=== PATIENT | male | born 1940 | race Caucasian/White ===

== ENCOUNTER 2021-09-16 19:34 | Emergency (ER) | payer OTHER ==
[~2021-09-16] VITALS: Ht 162.6 cm; Wt 81.2 kg
[2021-09-16 19:43] VITALS: BP 124/60
[2021-09-16 20:43] VITALS: BP 123/55
== END 2021-09-16 20:47 | disposition home or self-care (01) ==
LOC: MED 19:34
DX: S41.112A Laceration without foreign body of left upper arm, initial encounter (principal); E11.9 Type 2 diabetes mellitus without complications; I10 Essential (primary) hypertension; Z98.890 Other specified postprocedural states; W18.09XA Striking against other object with subsequent fall, initial encounter; Y93.89 Activity, other specified; Y92.89 Other specified places as the place of occurrence of the external cause; Y99.8 Other external cause status
CPT/HCPCS: 99281

== ENCOUNTER 2022-05-12 13:15 | Inpatient (IN) | payer OTHER ==
[~2022-05-12] VITALS: Ht 177.8 cm; Wt 84.1 kg
--- NOTE | 2022-05-12 | NUR ---
2034 RECEIVED PT FROM ED ON A GURNEY ACCOMPANIED BY AN RN AND 3 RT'S PT IS BEING BAGGED H ENTERS ICU . HE'S TRANSFERRED TO AN ICU BED USING A SLIDER BOARD AND IMMEDIATELY CONNECTED TO THE VENTILATOR VIA ETT. WITH SETTINGS OF AC RATE 18TV 450 FIO2 35%
--- NOTE | 2022-05-12 | NUR ---
PT BP DROPPED TO 59./20 LEVOPHEDINCREASED TO 8MCG/MIN AND LATER DROPPED BACK TO 5MCG
[2022-05-12] MEDS ORDERED: ACETAMINOPHEN 650 MG SUPP RC ONE ×2 (13:50)
--- NOTE | 2022-05-12 14:09 | NUR ---
81 Y/O MALE MAUREEN FROM [facility] SN[facility], C/O ALOC, PER EMS PT IS NORMALLY GCS 15, A/OX4 VERBALLY RESPONSIVE, PT PRESENTS TO ED ALERT TO PAIN ONLY, GCS 5, PERRL NOTED, LEFT DIALYSIS SHUNT THRILLS NOTED, GEN EDEMA NOTED, SATTING AT 98% ON NRB, 88% RA. NOTED CRACKLES AND DIMINISHED BREATH SOUNDS THROUGHOUT. NKA PMH: DM, HTN, ESRD DIALYSIS MWF LEFT FOREARM SHUNT, HDL, HYPOTHYROID Addendum: 05/12/22 at 1901 by MNURBMD SPOKE TO LIN OF FACILITY STATED THAT PT IS NORMALLY GCS14 WITH CONFUSIONS, HOWEVER HE IS NORMALLY VERBALLY RESPONSIVE
--- NOTE | 2022-05-12 14:13 | NUR ---
X-Ray at bedside.
--- NOTE | 2022-05-12 14:23 | NUR ---
PT TAKEN TO CT VIA TRAVEL OT AND PRIMARY RN
[2022-05-12] MEDS ORDERED: INTUBATION KIT MC ONE (14:31)
[2022-05-12] MEDS ORDERED: ROCURONIUM 50 MG/5 ML VIAL IV ONE ×2 (14:35→15:00)
[2022-05-12] MEDS ORDERED: ETOMIDATE 20 MG/10 ML VIAL IVP ONE (14:35)
--- NOTE | 2022-05-12 14:36 | NUR ---
Patient Addendum: 05/12/22 at 1436 by RITCHIE Patient back from CT scan to bed 10
[2022-05-12] MEDS ORDERED: PROPOFOL 1000 MG/100 ML PREMIX 100 ML IV ONE ×3 (14:42→21:08)
[2022-05-12 14:50] VITALS: BP 151/59
[2022-05-12] MEDS ORDERED: SUCCINYLCHOLINE CHLORIDE 200 MG/10 ML VIAL IVP ONE (15:00)
--- NOTE | 2022-05-12 15:06 | NUR ---
INTUBATION 1448-DR ROTHMAN, RT AND PRIMARY RN AT BEDSIDE 1449-20MG ETOMIDATE GIVEN 1449- 100MG ROCURONIUM GIVEN 1450-INTUBATED, 7.5 ETT, 24' AT THE LIP. +COLOR CHANGE +BILATERAL BREATH SOUNDS 1452- OG TUBE INSERTED BY DR ROTHMAN +AUSCULATED.
[2022-05-12] MEDS ORDERED: cefTRIAXone 1,000 MG VIAL ONE (15:13)
--- NOTE | 2022-05-12 15:15 | NUR ---
DR ROTHMAN AT BEDSIDE FOR CENTRAL LINE PLACEMENT, INSERTED TO R IJ AT 1515. PERFORMED USING STERILE TECHNIQUE.
[2022-05-12 15:20] LABS: ALBUMIN 2.7 g/dL (3.4-5.0); ASPARTATE AMINOTRANSFERASE 25 U/L (15-37); CARBON DIOXIDE 29.6 mmol/L (21-32); CHLORIDE 95 mmol/L (98-107); GLUCOSE 158 mg/dL (74-106); POTASSIUM 5.6 mmol/L (3.5-5.1); SODIUM SERUM 133 mmol/L (136-145); TOTAL BILIRUBIN 0.3 mg/dL (0.0-1.0); UREA NITROGEN, BLOOD 36 mg/dL (7-18)
[2022-05-12] MEDS ORDERED: NOREPINEPHRINE 4 MG/4 ML VIAL IV ONE (15:20)
[2022-05-12 15:25] LABS: CREATININE 5.7 mg/dL (0.6-1.3)
[2022-05-12 15:34] LABS: BASOPHILS # (AUTO) 0.1 K/uL (0.00-0.22); BASOPHILS % (AUTO) 1.1 % (0.0-2.0); EOSINOPHILS # (AUTO) 0.1 K/uL (0-0.4); EOSINOPHILS % (AUTO) 0.8 % (0.0-4.0); HEMATOCRIT 32.7 % (36-52); HEMOGLOBIN 10.4 g/dL (12.0-18.0); LYMPHOCYTES # (AUTO) 1.8 K/uL (2.0-11.5); LYMPHOCYTES % (AUTO) 14.3 % (20.5-51.1); MEAN CORPUSCULAR HEMOGLOBIN 28 pg (27-31); MEAN CORPUSCULAR HGB CONC 32 g/dL (33-37); MEAN CORPUSCULAR VOLUME 86.7 fL (80-94); MONOCYTES # (AUTO) 0.9 K/uL (0.8-1.0); MONOCYTES % (AUTO) 7.6 % (1.7-9.3); NEUTROPHILS # (AUTO) 9.3 K/uL (1.8-7.7); NEUTROPHILS % (AUTO) 76.2 % (42.2-75.2); PLATELET COUNT (AUTO) 211 K/uL (140-450); RED BLOOD CELL COUNT(AUTO) 3.77 MIL/uL (4.20-6.10); RED CELL DISTRIBUTION WIDTH 18.8 % (11.6-13.7); WHITE BLOOD COUNT (AUTO) 12.2 K/uL (4.8-10.8)
[2022-05-12] MEDS ORDERED: NOREPINEPHRINE 4 MG in DEXTROSE 5% 250 ML IV ONE (15:35)
[2022-05-12] MEDS ORDERED: CALCIUM CHLORIDE 10% 100 MG/ML SYR IVP ONE (15:40)
[2022-05-12] MEDS ORDERED: SODIUM POLYSTYRENE 15 GM/60 ML UDBTL PR ONE (15:40)
--- NOTE | 2022-05-12 15:48 | NUR ---
@1540 PT VENT ALARMED "PT DISCONECTED". RT TROUBLE SHOOTED WHILE XRAY BAGGED PT WITH AMBU BAG.PT IS STABLE WHILE VENT WAS CHANGED OUT. PT IS CURRENTLY STABLE AND IS ON NEW VENT ID [id number] AND IS WORKING ACCURATELY. PT IS STABLE WITH VITAL SIGNS HR 101 SPO2 98%.
--- NOTE | 2022-05-12 16:00 | NUR ---
NOTED INCREASED GREEN GASTRIC CONTENTS IN OGT, DR ROTHMAN MADE AWARE, STATED OK TO SUCTION OGT, NOTED 300CC OF GREEN COLORED CONTENTS
[2022-05-12] MEDS ORDERED: ONDANSETRON 4 MG/2 ML VIAL IVP PRN (16:10)
[2022-05-12] MEDS ORDERED: MORPHINE SULFATE 4 MG/ML SYR IVP PRN (16:10)
[2022-05-12] MEDS ORDERED: VANCOMYCIN PER PHARMACY MC PRN (16:10)
--- NOTE | 2022-05-12 17:00 | NUR ---
Sally sutton in [facility] - 05/12/22 at [address] MURILLO AT BEDSIDE
--- NOTE | 2022-05-12 17:00 | NUR ---
DR PARTIDA AT BEDSIDE
[2022-05-12 17:13] LABS: APPEARANCE,URINE CLEAR (CLEAR); BILIRUBIN,URINE NEGATIVE (NEGATIVE); BLOOD, URINE NEGATIVE (NEGATIVE); COLOR,URINE YELLOW (YELLOW); LEUKOCYTE ESTERASE ,URINE NEGATIVE (NEGATIVE); NITRITE, URINE NEGATIVE (NEGATIVE); UGLUCOSE 1+ (NEGATIVE)
--- NOTE | 2022-05-12 17:23 | NUR ---
SPOKE TO [facility] AFTER HOURS PHARMACIST REGARDING DR MURILLO ORDER FOR ZOSYN 3.75G Q8, PHARMACIST PT DIALYSIS SHOULD DO A SMALLER DOSE OF 2.25NG Q8.
--- NOTE | 2022-05-12 17:30 | NUR ---
CALLED DR PARTIDA REGARDING DR MURILLO ORDER OF ZOSYN AND PHARMACIST RECOMMENDATION, DR PARTIDA STATED TO CHANGE ORDER TO ZOSYN 2.25G Q8
[2022-05-12 17:34] LABS: RBC,URINE 0-5 /HPF (0-5); WBC,URINE 0-5 /HPF (0-5)
[2022-05-12 17:35] LABS: FINE GRANULAR CASTS,URINE 0-10 /LPF (None Seen); TRICHOMONAS,URINE None Seen /HPF (None Seen); YEAST,URINE None Seen /HPF (None Seen)
[2022-05-12] MEDS ORDERED: PIPERACILLIN/TAZOBACTAM 3.375 GM in DEXTROSE 5% 50 ML IV SCH (18:00)
[2022-05-12] MEDS ORDERED: ATOR20TA40 PO (18:17)
[2022-05-12] MEDS ORDERED: FOLI1TAB90 PO (18:17)
[2022-05-12] MEDS ORDERED: AMLO10TA88 PO (18:17)
[2022-05-12] MEDS ORDERED: GLIM2TAB PO (18:17)
[2022-05-12] MEDS ORDERED: GABA300C1 (18:17)
[2022-05-12] MEDS ORDERED: MONT10TA35 (18:17)
[2022-05-12] MEDS ORDERED: LOSA50TA57 PO (18:17)
[2022-05-12] MEDS ORDERED: REN800 (18:17)
[2022-05-12] MEDS ORDERED: ASPI-1794 PO (18:17)
[2022-05-12] MEDS ORDERED: ISOS30TE68 PO (18:17)
[2022-05-12] MEDS ORDERED: AMIT25TA29 PO (18:17)
[2022-05-12] MEDS ORDERED: HYDR-4420 PO (18:17)
[2022-05-12] MEDS ORDERED: SEVE800T25 PO (18:17)
[2022-05-12] MEDS ORDERED: BACL10TA4 PO (18:17)
[2022-05-12] MEDS ORDERED: LEVO0.179 PO (18:17)
[2022-05-12] MEDS ORDERED: FERR-149 PO (18:17)
[2022-05-12] MEDS ORDERED: ACET-9526 PO (18:17)
[2022-05-12] MEDS ORDERED: INSU100I21 SUBQ (18:17)
[2022-05-12] MEDS ORDERED: ACET-10509 PO (18:19)
[2022-05-12] MEDS ORDERED: MULT-1469 PO (18:19)
[2022-05-12] MEDS ORDERED: TERA5CAP8 PO (18:19)
[2022-05-12] MEDS ORDERED: VANCOMYCIN 1,000 MG VIAL ONE (18:27)
[2022-05-12] MEDS ORDERED: VANCOMYCIN 1,000 MG in DEXTROSE 5% 250 ML IV ONE (18:30)
--- NOTE | 2022-05-12 19:20 | NUR ---
Pt report given to rosales ann. Transfer of care at this time.
--- NOTE | 2022-05-12 19:27 | NUR ---
RECEIVED PT IN BED 10, ATTACHED TO VENT ON A/C, BUR 18, VT 450 CC, FiO2 AT 45%. PROPIFOL, AND LEVOPHED INFUSING WELL. PT IS UNRESPONSIVE AT THIS TIME.
[2022-05-12 20:00] VITALS: BP 120/57
--- NOTE | 2022-05-12 20:05 | NUR ---
REPORT CALLED TO JENNIFER ROBLES
--- NOTE | 2022-05-12 20:25 | NUR ---
TO ICU 7 VIA GURNEY, ATTACHED TO CM, RT AT BEDSIDE. RN AND CALCULUS TEACHER ACCOMPANYING WITH RT
--- NOTE | 2022-05-12 20:35 | NUR ---
CONTINUING. AND PEEP 5. PT HAS VERY SHALLOW BREATHING; THE CHEST WALL BARELY MOVES. HE'S CONNECTED TO THE BEDSIDE WINDER TENDER SHOWING SINUS RHYTHM, BP/120/69 ON 3MCG LEVOPHED.PT IS LSO ON PROPOFOL AND IS AT A RASS-3. HIS GIVEN A SPONGE BATH AND HE HAS A HEALING WOUND ON HIS COCCYX BONE ANEW DRSG APPLIED HE HAS WENDY HEEL WOUNDS . THE DRSG WERE REMOVED AND NEW DRSG APPLIED. PT HAS A RIGHT INTERNAL JUGULAR CENTRAL LINE, HE ALSO HAS A 18 G ANGIOCATH IN THE RFA. ORAL CARE GIVEN PT HE HAS CLEAR SECRETION IN THE MOUTH. PT XRAY SHOWS LOWER LOBE INFILTRATE WHICH RESULTS ASPIRATION PNEUMONIA PER THE SUPERVISOR TREE TRIMMING NOTES. PT HAS FUNGUS ON HIS FEET BILATERALLY.
[2022-05-12 21:00] VITALS: BP 167/52
[2022-05-12] MEDS: PIPERACILLIN/TAZOBACTAM 2.25 GM in DEXTROSE 5% 50 ML IV SCH (21:00)
[2022-05-12] MEDS ORDERED: PIPERACILLIN/TAZOBACTAM 2.25 GM VIAL IV ONE (21:39)
[2022-05-12 22:00] VITALS: BP 112/38
[2022-05-12] MEDS ORDERED: NOREPINEPHRINE 8 MG in DEXTROSE 5% 250 ML IV PRN (22:00)
[2022-05-12 23:00] VITALS: BP 113/42
[2022-05-13] VITALS (19 sets, daily range): BP systolic 88–169; BP diastolic 37–70
[2022-05-13] MEDS: PROPOFOL 1000 MG/100 ML PREMIX 100 ML IV PRN ×4 (02:01→22:39)
--- NOTE | 2022-05-13 03:56 | NUR ---
PT BLOOD PRESSURE IS STABLIZING ON THE 5MCG; WILL TITRATE BACK TO 3 TO SEE HOW HE DOES. THE 35MCG OF PROPOFOL HAS PROVED SUFFICIENT TO KEEP THE PT AT A RASS 3
[2022-05-13] MEDS ORDERED: NOREPINEPHRINE 4 MG/4 ML VIAL IV ONE (04:19)
[2022-05-13] MEDS ORDERED: PIPERACILLIN/TAZOBACTAM 2.25 GM VIAL IV ONE (05:30)
[2022-05-13] MEDS: PIPERACILLIN/TAZOBACTAM 2.25 GM in DEXTROSE 5% 50 ML IV SCH ×3 (05:45→20:32)
[2022-05-13 05:48] LABS: BASOPHILS # (AUTO) 0.2 K/uL (0.00-0.22); BASOPHILS % (AUTO) 1.2 % (0.0-2.0); EOSINOPHILS # (AUTO) 0.1 K/uL (0-0.4); EOSINOPHILS % (AUTO) 0.6 % (0.0-4.0); HEMATOCRIT 30.9 % (36-52); HEMOGLOBIN 9.8 g/dL (12.0-18.0); LYMPHOCYTES # (AUTO) 1.7 K/uL (2.0-11.5); LYMPHOCYTES % (AUTO) 11.9 % (20.5-51.1); MEAN CORPUSCULAR HEMOGLOBIN 28 pg (27-31); MEAN CORPUSCULAR HGB CONC 32 g/dL (33-37); MEAN CORPUSCULAR VOLUME 87.1 fL (80-94); MONOCYTES # (AUTO) 1.1 K/uL (0.8-1.0); MONOCYTES % (AUTO) 7.8 % (1.7-9.3); NEUTROPHILS # (AUTO) 11.3 K/uL (1.8-7.7); NEUTROPHILS % (AUTO) 78.5 % (42.2-75.2); PLATELET COUNT (AUTO) 184 K/uL (140-450); RED BLOOD CELL COUNT(AUTO) 3.54 MIL/uL (4.20-6.10); RED CELL DISTRIBUTION WIDTH 18.7 % (11.6-13.7); WHITE BLOOD COUNT (AUTO) 14.4 K/uL (4.8-10.8)
[2022-05-13 06:00] LABS: CARBON DIOXIDE 26.8 mmol/L (21-32); CHLORIDE 92 mmol/L (98-107); GLUCOSE 378 mg/dL (74-106); POTASSIUM 4.8 mmol/L (3.5-5.1); SODIUM SERUM 130 mmol/L (136-145); UREA NITROGEN, BLOOD 49 mg/dL (7-18)
[2022-05-13 06:03] LABS: CREATININE 6.6 mg/dL (0.6-1.3)
[2022-05-13 06:07] LABS: MAGNESIUM 2.2 mg/dL (1.8-2.4); PHOSPHORUS 4.2 mg/dL (2.5-4.9)
--- NOTE | 2022-05-13 06:10 | NUR ---
laboratory concepcion to report a critical lab value creatinine 6.2 text msg sent to DR. Ramires.
--- NOTE | 2022-05-13 07:14 | NUR ---
JASVIR ON PREVIOUS NOTE. DR. GONG IS NOT PREPARER SAMPLES AND REPAIRS IT'S DR. PARTIDA . WAITING FOR A RETURN CALL.
--- NOTE | 2022-05-13 07:15 | NUR ---
RECEIVED BEDSIDE REPORT TO DROP WORKER NURSE TRAVIS RODRIGUEZ. PT SEDATED. AC VC FIO2 35%, VT 450, RR 18, PEEP 5. OGT IN PLACE, CLAMPED. RIJ TRIPLE LUMEN CATHETER, RUNNING PROPOFOL @ 35 MCG/KG/MIN, LEVO @ 3 MCG/MIN. TRAN IN PLACE TO GRAVITY, URINE CLEAR AND YELLOW. HD CATHETER TO LT ARM. SKIN SEE WOUND ASSESSMENT. BED TO LOWEST POSITION, HOB ELEVATED, CALL LIGHT WITHIN REACH, WILL CONTINUE TO MONITOR.
--- NOTE | 2022-05-13 08:54 | NUR ---
FAMILY/SON AT BEDSIDE. UPDATED PT INFORMATION. MENTIONED PT HD DUE AT MON.
[2022-05-13] MEDS ORDERED: VANCOMYCIN 1,000 MG in NACL 0.9% 250 ML IV SCH (09:00)
--- NOTE | 2022-05-13 11:19 | NUR ---
FAMILY/ AND DAUGHTER AT BEDSIDE. UPDATED PT INFORMATION.
--- NOTE | 2022-05-13 13:00 | NUR ---
DR JAQUAN KRUEGER AT BEDSIDE. UPDATED PT INFORMATION. ALL QUESTIONS ANSWERED. ORDERED TUBE FEEDING.
[2022-05-13] MEDS ORDERED: DEXTROSE 50% 50 ML SYR IVP PRN (17:35)
--- NOTE | 2022-05-13 18:00 | NUR ---
DR FARIDEH KRUEGER AT BEDSIDE. UPDATED PT INFORMATION.
--- NOTE | 2022-05-13 19:10 | NUR ---
Report Given by Keven Case AM BOTTOM TURNING LATHE TENDER for continuity of care. Initial assessment done ( Please see Flowsheet for complete Physical assessment)
--- NOTE | 2022-05-13 19:15 | NUR ---
ENDORSED TO CREASING MACHINE OPERATOR JAKE RODRIGUEZ FOR CONTINUITY OF CARE.
--- NOTE | 2022-05-13 19:20 | NUR ---
RECEIVED PHONE CALL FROM SON. UPDATED PT INFORMATION.
--- NOTE | 2022-05-13 20:50 | NUR ---
BS= 297mg/dl, Given 6units Humalog SQ as per Sliding Scale Coverage ordered.
[2022-05-13] MEDS: BLOOD GLUCOSE MONITORING 1 DEV DEV FS SCH (20:52)
--- NOTE | 2022-05-13 21:00 | NUR ---
Due meds given, tolerated well. Will monitor for any possible Adverse reaction.
--- NOTE | 2022-05-13 21:45 | NUR ---
Dr. Singh called & asked for BMP & CXR results, Relayed All Results to him & He stated that He Will Arrange for the Hemodialysis tomorrow.
--- NOTE | 2022-05-13 22:15 | NUR ---
[facility] RN Called to ask for pt's HD Access, Hemodialysis Consent. Called , Bindu Moise for a Hemodialysis consent & witness with Sam Lozoya RN. Done.
[2022-05-14] VITALS (30 sets, daily range): BP systolic 100–164; BP diastolic 44–84
--- NOTE | 2022-05-14 00:30 | NUR ---
No cardio-respiratory distress noted at this time. Tolerating the Ventilator well. Oral care rendered, with Chlorhexidine Oral rinse & oral debriding agent. Tolerated well. Bed in Low position, Brakes on, Head of Bed in 30 degrees angle. Will continue to monitor patient.
--- NOTE | 2022-05-14 03:00 | NUR ---
No pain or discomfort noted at this time, Turn & reposition q2h as ordered, Still sedated with Propofol @ 25mcg/kg/min, Tolerating well the Sedation well. Levophed Drip Held, BP was holding well with SBP= 120's to 150's.
--- NOTE | 2022-05-14 04:26 | NUR ---
Total care given, Pericare rendered, Made Clean, Dry & comfortable, tolerated well. Clean with wound cleanser & change wound dressing. No pain or discomfort noted during Care. Turn & Repposition q2H as ordered. Keep feet off the bed.
[2022-05-14] MEDS: PIPERACILLIN/TAZOBACTAM 2.25 GM in DEXTROSE 5% 50 ML IV SCH ×3 (05:23→20:51)
[2022-05-14 05:37] LABS: BASOPHILS # (AUTO) 0.1 K/uL (0.00-0.22); BASOPHILS % (AUTO) 0.8 % (0.0-2.0); EOSINOPHILS # (AUTO) 0.6 K/uL (0-0.4); EOSINOPHILS % (AUTO) 5.3 % (0.0-4.0); HEMATOCRIT 28.9 % (36-52); HEMOGLOBIN 9.5 g/dL (12.0-18.0); LYMPHOCYTES # (AUTO) 1.4 K/uL (2.0-11.5); LYMPHOCYTES % (AUTO) 13.1 % (20.5-51.1); MEAN CORPUSCULAR HEMOGLOBIN 28 pg (27-31); MEAN CORPUSCULAR HGB CONC 33 g/dL (33-37); MEAN CORPUSCULAR VOLUME 85.5 fL (80-94); MONOCYTES # (AUTO) 0.6 K/uL (0.8-1.0); MONOCYTES % (AUTO) 6.2 % (1.7-9.3); NEUTROPHILS # (AUTO) 7.8 K/uL (1.8-7.7); NEUTROPHILS % (AUTO) 74.6 % (42.2-75.2); PLATELET COUNT (AUTO) 175 K/uL (140-450); RED BLOOD CELL COUNT(AUTO) 3.38 MIL/uL (4.20-6.10); RED CELL DISTRIBUTION WIDTH 18.9 % (11.6-13.7); WHITE BLOOD COUNT (AUTO) 10.5 K/uL (4.8-10.8)
[2022-05-14 06:05] LABS: ANION GAP 17.3 (8-16); CARBON DIOXIDE 25.8 mmol/L (21-32); CHLORIDE 92 mmol/L (98-107); GLUCOSE 230 mg/dL (74-106); POTASSIUM 4.1 mmol/L (3.5-5.1); SODIUM SERUM 131 mmol/L (136-145); UREA NITROGEN, BLOOD 60 mg/dL (7-18)
[2022-05-14 06:08] LABS: CREATININE 7.5 mg/dL (0.6-1.3)
[2022-05-14] MEDS: PROPOFOL 1000 MG/100 ML PREMIX 100 ML IV PRN (06:08)
[2022-05-14 06:12] LABS: MAGNESIUM 2.3 mg/dL (1.8-2.4); PHOSPHORUS 4.8 mg/dL (2.5-4.9)
--- NOTE | 2022-05-14 07:00 | NUR ---
RECEIVED PT ON VC 450, RR18,+5,35% FIO2. WHEELS ARE LOCKED, PLUGGED INTO RED OUTLET, AMBUBAG AT BEDSIDE, ALARMS ARE SET AND AUDIBLE. PT [id number] WAS 99%. WILL CONTINUE TO MONITOR.
--- NOTE | 2022-05-14 07:30 | NUR ---
PATIENT RECEIVED FROM NIGHT RN JAKE DOUGLASS, INTUBATED, SEDATED WITH PROPROFOL AT 25 MCG, HR AT 49-50, SBP 90S, RASS -4. FEEDING NEPRO AT 20 MLS/HR WITH FREE WATER. HEELS HAS DIABETIC ULCER, SACRUM HAS UNSTAGEABLE, LEFT ARM SHUNT, FOR HEMO TODAY.
--- NOTE | 2022-05-14 07:42 | NUR ---
Report given to VENKATESH Vaughn SECURITY CONTROL ASSESSOR. All questions answered.
[2022-05-14] MEDS: BLOOD GLUCOSE MONITORING 1 DEV DEV FS SCH ×4 (08:17→21:03)
[2022-05-14] MEDS: INSULIN LISPRO SLIDING SCALE 100 UNITS/ML VIAL SUBQ PRN ×2 (08:19→12:14)
[2022-05-14] MEDS: INSULIN LANTUS 100 UNITS/ML 10 ML VIAL SUBQ SCH (08:21)
--- NOTE | 2022-05-14 10:24 | NUR ---
PATIENT HAS BEEN SCREENED AND CATEGORIZED HIGH NUTRITION RISK. PATIENT WILL BE SEEN WITHIN 1-2 DAYS OF ADMISSION. 05/13/2212/19/[address]
--- NOTE | 2022-05-14 11:24 | NUR ---
WOUND CARE EVALUATION NOTE: SKIN ASSESSMENT DONE WITH THIS 81 Y/O PT. ADMITTED WITH FEVER AND PNEUMONIA. PAST MEDICAL HX OF ESRD ON HD, DIABETES, HYPERTENSION, HYPERLIPIDEMIA, CHRONIC ANEMIA, HYPOTHYROIDISM. PT IS INTUBATED WITH SEDATION. PT. ADMITTED WITH MULTIPLE UN-STAGEABLE ULCERS. SKIN DRY AND INTACT. POC DISCUSSED WITH PRIMARY RN BRANDON. -MOISTURE ASSOCIATED SKIN DAMAGE TO SCROTAL AND DONALD-ANAL AREA, MOIST, INTACT -PRESSURE INJURY UN-STAGEABLE TO SACRALCOCCYX 6.5X6CM, WOUND BED 100% BROWN AND MOIST, NO ODOR, DONALD WOUND SKIN NON-BLANCHABLE MOIST, FURTHER DAMAGE INDICATED -PRESSURE INJURY TO LEFT HEEL 4X6CM 100 % BROWN TISSUE, MOIST, NO ODOR, DONALD WOUND SKIN DRY SCALY SCAR TISSUE. -PRESSURE INJURY TO RIGHT HEEL 2.5X5CM 100 % BROWN TISSUE, DRY, NO ODOR, DONALD WOUND SKIN WHITE DENUDED SKIN WITH FURTHER DAMAGE INDICATED. RECOMMENDATIONS -APPLY HYDRAGUARD TO SCROTAL AND DONALD-ANAL AREA BID AND PRN IF SOILING -CLEANSE SACRALCOCCYX WITH NS, PAT DRY, APPLY THERAHONEY GEL TO WOUND BED AND Z GUARD TO DONALD WOUND SKIN, COVER WITH DRY DRESSING QD AND PRN IF SOILING -APPLY MOIST BETADINE WESLY. 4X4 GAUZES TO BILATERAL HEELS AND WRAP WITH KERLIX ROLLS,SECURED WITH TAPE DAILY AND PRN IF SOILING -HEEL RAISERS TO BILATERAL HEELS WITH OFFLOAD -POSITIONING: TURN AND REPOSITION PATIENT Q 2H OR SOONER USE PILLOWS TO KEEP BONY PROMINENCES FROM DIRECT CONTACT WITH SURFACES USE REPOSITIONING WEDGES TO PROVIDE 30-DEGREE ANGLE FOR SIDE LYING POSITIONS OFFLOADING OR FOAM DRESSING TO ALL TUBING TO PREVENT MEDICAL DEVICES RELATED PRESSURE INJURY -RE-EVALUATING AND MANAGING INCONTINENCE MONITOR SKIN CONDITION DURING POSITION CHANGE DO NOT MASSAGE REDNESS, BONY PROMINENCES, DO NOT USE DONUT-TYPE DEVICES FREQUENT DONALD-CARE AND PROVIDE BARRIER CREAMS PRN IF SOILING MOISTURE CONTROL BY OFFER BED MALHOTRA/URINAL /ABSORBENT PAD TO WICK AND HOLD MOISTURE KEEP SKIN DRY AND PROTECT FROM FRICTION -MANAGE FRICTION/SHEAR/MOBILITY KEEP HOB AT THE LOWEST LEVEL OF ELEVATION NO MORE THAN 30 DEGREE UNLESS OTHERWISE CONTRAINDICATED USE LIFT SHEET OR TRANSFER DEVICE TO MOVE PATIENT AND PREVENT LATERAL SHEER. PROTECT HEELS, ELBOWS BONY PROMINENCES WITH SKIN BERRIES OR FOAM DRESSING IF EXPOSED TO FRICTION OFFLOAD BILATERAL HEELS BY PLACING PILLOWS UNDER CALVES AT ALL TIMES, UNLESS OTHERWISE CONTRAINDICATED -PRESSURE REDISTRIBUTION SURFACE THERAPY WITH PATTI ISOFLEX ALICIA MATTRESS -NUTRITION: PLEASE FOLLOW RD RECOMMENDATIONS AND OFFER NUTRITION SUPPLEMENTS IF ORDERED.
[2022-05-14] MEDS ORDERED: MIDAZOLAM 2 MG/2 ML VIAL IV PRN (13:20)
[2022-05-14] MEDS: THERAHONEY GEL 42.5 GM TP SCH (13:52)
[2022-05-14] MEDS: HYDRAGUARD CREAM TP SCH (13:52)
[2022-05-14] MEDS: GAUZE TP SCH (13:52)
[2022-05-14] MEDS: Z-GUARD PASTE TP SCH (13:53)
[2022-05-14] MEDS: DEXMEDETOMIDINE HCL 400 MCG in NACL 0.9% 96 ML IV PRN (15:27)
[2022-05-14] MEDS ORDERED: HYDROmorphone 1 MG/ML AMP IVP PRN (15:30)
[2022-05-14] MEDS: HYDROmorphone 1 MG/ML AMP IVP PRN (15:41)
--- NOTE | 2022-05-14 16:58 | NUR ---
05/14/22 RD INITIAL ASSESSMENT COMPLETED PLEASE REFER TO NUTRITION ASSESSMENT UNDER CARE ACTIVITY FOR ESTIMATED NUTRITIONAL NEEDS. 1. CONTINUE NEPRO @ 40 ML/HR, FWF 100ML Q8H 2. RECOMMEND GREGORY BID FOR WOUND HEALING - WITH GREGORY BID, PT WILL RECEIVE 1200 ML TOTAL VOLUME, 2248 KCAL, 83 GM PROTEIN, AND 997 ML FREE WATER; ADEQUATE 2. MONITOR GASTRIC RESIDUALS AND NUTRITION-RELATED LAB VALUES 3. RD TO FOLLOW-UP 2-3 DAYS, HIGH RISK REVIEWED BY SHAHBAZ COLLINS RD
--- NOTE | 2022-05-14 19:30 | NUR ---
PATIENT HANDED OVER TO NIGHT RN PARRIS. PATIENT'S BED WAS CHANGED TO AIR MATTRESS. BOTH HEELS DRESSING DONE BY SOLAR FIELD SERVICE TECHNICIAN. SACRUM CHANGED THIS EVENING WITH RASHAD, COVERED WITH STRASORB DRESSING. PROPOFOL STOPPED, CHANGED TO PRECEDEX 0.2 MCG, THEN INCREASED TO 0.3 MCG DUE TO PTIENT'S AGITATION, BP GOES UP TO 160, NOW SBP 140-150. GIVEN PRN PAIN MEDICATION. PT. WAS ABLE TO NOD, WHEN ASKED ABOUT PAIN, RESTRAINED DUE TO TRIES TO PULL OUT TUBES AND LINES. FNS ADDED GREGORY BID, OKAYED BY DR. WALDEN.
--- NOTE | 2022-05-14 20:00 | NUR ---
ASSUMED CARE OF THIS PATIENT ,ASSESSMENT DONE AND COM[PLETED.sR/SB ON MONITOR.REMAINS ON PRECEDEX AT 0.3 MCG,OPEN EYES ON OCCASION .RESTRAINTS REMAINS IN PLACE TO OREVENT GROM PULLING OUT VITAL LINES.vENT SETTING UNCHANGED.NO EPISODE OF RESPIRATORY PROBLEMS/RIGHT UPPER ARM AV FISTULA PATENT AND DRESSING IN PLACE.VSS.WILL CONTINUE WITH ONGOING PLAN OF CARE.
[2022-05-15] VITALS (31 sets, daily range): BP systolic 143–191; BP diastolic 57–111
[2022-05-15] MEDS: HYDRAGUARD CREAM TP SCH ×2 (00:40→13:25)
[2022-05-15] MEDS: Z-GUARD PASTE TP SCH ×2 (00:41→13:25)
[2022-05-15] MEDS: DEXMEDETOMIDINE HCL 400 MCG in NACL 0.9% 96 ML IV PRN ×2 (04:08→18:56)
[2022-05-15] MEDS: PIPERACILLIN/TAZOBACTAM 2.25 GM in DEXTROSE 5% 50 ML IV SCH ×3 (04:32→20:44)
[2022-05-15 05:47] LABS: BASOPHILS # (AUTO) 0.1 K/uL (0.00-0.22); BASOPHILS % (AUTO) 0.8 % (0.0-2.0); EOSINOPHILS # (AUTO) 0.3 K/uL (0-0.4); EOSINOPHILS % (AUTO) 3.9 % (0.0-4.0); HEMOGLOBIN 9.9 g/dL (12.0-18.0); LYMPHOCYTES # (AUTO) 1.4 K/uL (2.0-11.5); LYMPHOCYTES % (AUTO) 15.8 % (20.5-51.1); MEAN CORPUSCULAR HEMOGLOBIN 27 pg (27-31); MEAN CORPUSCULAR HGB CONC 32 g/dL (33-37); MEAN CORPUSCULAR VOLUME 84.7 fL (80-94); MONOCYTES # (AUTO) 0.7 K/uL (0.8-1.0); MONOCYTES % (AUTO) 7.5 % (1.7-9.3); NEUTROPHILS # (AUTO) 6.4 K/uL (1.8-7.7); PLATELET COUNT (AUTO) 198 K/uL (140-450); RED BLOOD CELL COUNT(AUTO) 3.66 MIL/uL (4.20-6.10); WHITE BLOOD COUNT (AUTO) 8.9 K/uL (4.8-10.8)
--- NOTE | 2022-05-15 06:00 | NUR ---
WILL CONTINUE WITH CARE AND ENDORSE WITH DAY SHIFT RN.
[2022-05-15 06:21] LABS: ANION GAP 12.9 (8-16); CARBON DIOXIDE 32.9 mmol/L (21-32); CHLORIDE 98 mmol/L (98-107); GLUCOSE 208 mg/dL (74-106); POTASSIUM 3.8 mmol/L (3.5-5.1); SODIUM SERUM 140 mmol/L (136-145); UREA NITROGEN, BLOOD 35 mg/dL (7-18)
[2022-05-15 06:29] LABS: MAGNESIUM 2.2 mg/dL (1.8-2.4); PHOSPHORUS 3.1 mg/dL (2.5-4.9)
[2022-05-15 06:35] LABS: CREATININE 5.4 mg/dL (0.6-1.3)
--- NOTE | 2022-05-15 07:49 | NUR ---
Reported critical creatinine levels to Dr. Hightower.
--- NOTE | 2022-05-15 07:51 | NUR ---
No new orders from Dr. Hightower. Creatinine level trending down.
--- NOTE | 2022-05-15 08:04 | NUR ---
Received pt awake, nonverbal. ETT to vent settings AC/VC TV 450 rate 18 PEEP 5 FiO2@30%. Sinus rhythm on monitor. OG-tube intact and infusing Nepro @40ml/hr with FWF 100 Q8hr. Wells catheter intact and draining to BSD. AV shunt on left upper arm with positive bruit and thrill. Central line on right IJ intact and patent infusing precedex @0.3 mcg/kg/min and NS@TKO. Bilat soft restraints in place with no signs of injury. Safety precautions in place.
[2022-05-15 08:08] LABS: HEPATITIS A ANTIBODY IGM Negative (Negative); HEPATITIS B CORE AB TOTAL Negative (Negative); HEPATITIS B SURFACE ANTIBODY Non Reactive (.); HEPATITIS B SURFACE ANTIGEN Negative (Negative)
--- NOTE | 2022-05-15 08:10 | NUR ---
RECEIVED ON A [employer] R860 VENTILATOR PLUGGED INTO RED OUTLET TOLERATING WELL WITHOUT ADVERSE REACTIONS NOTED TO AN ENDOTRACHEAL TUBE #7.4 SECURED AT 24cm TEETH/GUM LINE WITH AN ANCHOR FAST CUFF PRESSURE CHECKED NOTED AMBU BAG AT BEDSIDE STABLE EQUAL CHEST RISE GOOD AERATION THROUGHOUT BILATERAL LUNG BLISS AIRWAY PATENT SEWAGE PLANT ATTENDANT TO REVIEW PULMONOLOGY NOTES FOR WEANING
[2022-05-15] MEDS: INSULIN LISPRO SLIDING SCALE 100 UNITS/ML VIAL SUBQ PRN ×3 (08:28→16:23)
[2022-05-15] MEDS: BLOOD GLUCOSE MONITORING 1 DEV DEV FS SCH ×4 (08:28→20:47)
[2022-05-15] MEDS: VIT-B COMP/VIT-C/FOLIC ACID 1 TAB PO SCH (09:01)
[2022-05-15] MEDS: INSULIN LANTUS 100 UNITS/ML 10 ML VIAL SUBQ SCH (09:02)
--- NOTE | 2022-05-15 10:47 | NUR ---
Dr. Damon at bedside examining patient. Reported blood pressure readings in AM. No new orders.
[2022-05-15] MEDS: HYDROmorphone 1 MG/ML AMP IVP PRN ×2 (10:52→20:50)
--- NOTE | 2022-05-15 11:12 | NUR ---
PLACED ON CPAP TRIAL NOTED EQUAL CHEST RISE AIRWAY PATENT
--- NOTE | 2022-05-15 11:15 | NUR ---
LOC ASLEEP; UNABLE TO WEAN PATIENT AT THIS TIME DUE TO APNEIC STATUS AFTER ONE MINUTE PATIENT FAILURE TO GENERATE SpVt EVEN WITH SENSITIVITY AT PLACED 1.0 AND APNEA AT 20 OR 30 SECONDS PLACED MODE ON SIMV WITH DECREASED MECHANICAL RATE AT 16 BPM SIDNEY/GIS APPLICATION DEVELOPER NOTIFIED
--- NOTE | 2022-05-15 11:25 | NUR ---
Dr. Singh at bedside examining patient. New order for dialysis tomorrow.
--- NOTE | 2022-05-15 11:30 | NUR ---
RT at bedside. RT reported failed weaning trial and apneic after 2 minutes. ETT to vent settings SIMV/VC TV 450 rate 16 PEEP 5 and FiO2@28%. Pt tolerating vent settings well. O2 sat 99%.
--- NOTE | 2022-05-15 11:30 | NUR ---
DISCHARGE PLANNING PATIENT IS AN 81 YEAR OLD MALE ADMITTED TO THE [facility]/ED ON 05/12/2022 DUE TO ACUTE RESPIRATORY FAILURE. SW ATTEMPTED TO MEET WITH PATIENT AT BEDSIDE HOWEVER; PATIENT WAS NOT AWAKE AND ALERT AND SW CALL PATIENT'S DANTE WOLF AT .TO DISCUSS AND GATHER HIS COLLATERAL INFORMATION. PER PATIENT'S HE HAS BEEN PLACED UNDER SKILLS NEEDS AT [facility] FOR ABOUT 6 MONTHS AND NEITHER PATIENT OR FAMILY HAS ANY COMPLAINT FOR THE CARE AND TREATMENT PATIENT HAS BEEN RECEIVING. PER PATIENT'S HE HAS GOT ALL HIS MEDICATIONS, AND CONSISTENT GETTING THE SERVICES REQUIRED FOR HIS LEVEL WHICH SHE CAN NOT PROVIDE AT HOME FOR PATIENT THEREFORE; PATIENT WILL BE RETURNING BACK TO SNF [facility] WHEN HE IS READY AND STABLE TO DISCHARGE FROM [facility]. PER PATIENT'S HE ALSO HAS ALL EQUIPMENT NEEDED IN THE SNF BUT AT THIS TIME HE IS ONLY UTILIZING A WHEELCHAIR AND HIS ONLY DME. PER PATIENT'S HE HAS NO A.D. IN PLACE HOWEVER; SHE IS HIS EMERGENCY CONTACT AND SHE WILL BE HIS MEDICAL DECISION MAKER. PER PATIENT'S SHE WILL CONTINUE COMMUNICATING WITH [facility] ABOUT ANY PATIENT'S UPDATES ON CHANGE OF STATUS. SW THANKED HER FOR ALL THE INFORMATION PROVIDED. SW CALL PATIENT'S SNF/[facility] TO DISCUSS AND CONFIRM PATIENT;S INFORMATION. SW SPOKE TO GET ABOUT PATIENT. PATIENT HAS BEEN IN SNF SINCE 10/29/2021. [facility] SNF/STAFF PATIENT HAS DIALYSIS ON M, W, AND F, AT ABOUT 8:45AM AT [facility] [place] . PER GET PATIENT IS UNDER THE CARE OF DR. ZIYAD PELAEZ IN THE SNF FACILITY. PER STAFF/SNF PATIENT IS WELCOME TO COMEBACK TO SNF FACILITY WHEN SHE IS READY AND STABLE TO DISCHARGE UNDER SKILL CARE. GAMA THANKED DASHAWN FOR ALL THE INFORMATION AND ENDED THE CALL. SW/CM WILL FOLLOW UP NEEDED.
[2022-05-15] MEDS ORDERED: VANCOMYCIN 1,000 MG in DEXTROSE 5% 250 ML IV SCH (13:00)
[2022-05-15] MEDS: GAUZE TP SCH (13:25)
[2022-05-15] MEDS: THERAHONEY GEL 42.5 GM TP SCH (13:25)
--- NOTE | 2022-05-15 14:04 | NUR ---
LOC ASLEEP; SECOND ATTEMPT TO PLACED ON CPAP TRIAL WITH SENSITIVITY AT 1.0 AND APNEA AT 20, 30 OR 40 SECONDS; UNABLE TO WEAN DUE TO PATIENT UNABLE TO GENERATE SpVt POST CPAP TRIAL ATTEMPT DECREASED MECHANICAL RATE TO 14 BPM SIDNEY/GROUP CONTROLLER NOTIFIED
--- NOTE | 2022-05-15 14:39 | NUR ---
Dr. Staton placed pt on CPAP trial. RT to do ABG and report after an hour. Called RT department and spoke to Monika and relayed message.
--- NOTE | 2022-05-15 14:43 | NUR ---
REFERENCE SIDNEY/SENIOR PIPING DESIGNER NOTE AY 1439; ON OR ABOUT THIS TIME PATIENT FAILED CPAP TRIAL; VENTILATOR CONVERTED TO BACKUP MODE
--- NOTE | 2022-05-15 19:04 | NUR ---
RECEIVED PT INTUBATED WITH 7.5mm ETT 24 cm @ THE TEETH. SETTINGS VC SIMV 14, VT450, PEEP +5, PS 10, FIO2 35%. NO SIGNS OF DISTRESS NOTED AT THIS TIME PT IS SATING 100%. ANTERIOR AUSCULTATION REVEALED VESICULAR BS CLEAR THROUGHOUT ALL LUNG BLISS, SXN FOR SM PALE/YELLOW THICK SECRETIONS. ETT REPOSITIONED TO PREVENT SKIN BREAKDOWN, HOB ELEVATED, ORAL CARE DONE, BVM AT BEDSIDE, VENT PLUGGED INTO RED OUTLET, ALARMS ARE ON AND AUDIBLE. WILL CONTINUE TO MONITOR.
--- NOTE | 2022-05-15 19:36 | NUR ---
Endorsed to overnight houseperson nurse Randa for continuity of care.
--- NOTE | 2022-05-15 19:50 | NUR ---
PLACED PT ON CPAP MODE PEEP 5 PS 5 28% FIO2, PT NIF OF -12, RSBI 68, PT FAILED LASTED FROM 19:40 - 19:47. NOTIFIED RN PLACED PT BACK ON ORIGINAL SETTINGS WILL CONTINUE TO MONITOR.
--- NOTE | 2022-05-15 20:00 | NUR ---
OPENING NOTE PT IN BED WITH EYES OPENING ATTEMPTING TO PULL TOWARD HIS TUBE. HAD ALBANIAN NURSE INTERPRET AND PT AWARE OF HE IS IN HOSPITAL AND AWARE OF HIS NAME AND THE YEAR. PT IS ON MONITO AND BP IS ELEVATED , MD IS AWARE PER DAY NURSE. PT REMAINS ON DECREASE DOSE OF PRECEDEX AT 0.3 MCG,R/T HR WAS DECREASING. PT HAS BILAT WRIST RESTRAINTS REMAINS IN PLACE FORPT'S OWN SAFETY. PT HAS VENT SETTING OF 14/450/28%/5. PT HAS RIGHT UPPER ARM AV FISTULA PATENT AND DRESSING IN PLACE. WILL CONTINUE TO MONITOR FOR SAFETY.
[2022-05-16] VITALS (29 sets, daily range): BP systolic 146–187; BP diastolic 38–74
[2022-05-16] MEDS: Z-GUARD PASTE TP SCH ×2 (01:00→12:25)
[2022-05-16] MEDS: HYDRAGUARD CREAM TP SCH ×2 (01:00→12:25)
[2022-05-16 05:42] LABS: ANION GAP 18.3 (8-16); CARBON DIOXIDE 27.9 mmol/L (21-32); CHLORIDE 96 mmol/L (98-107); CREATININE 6.5 mg/dL (0.6-1.3); GLUCOSE 231 mg/dL (74-106); POTASSIUM 4.2 mmol/L (3.5-5.1); SODIUM SERUM 138 mmol/L (136-145); UREA NITROGEN, BLOOD 49 mg/dL (7-18)
[2022-05-16] MEDS: PIPERACILLIN/TAZOBACTAM 2.25 GM in DEXTROSE 5% 50 ML IV SCH ×3 (05:48→20:14)
[2022-05-16] MEDS: BLOOD GLUCOSE MONITORING 1 DEV DEV FS SCH ×4 (05:57→20:15)
[2022-05-16] MEDS: INSULIN LISPRO SLIDING SCALE 100 UNITS/ML VIAL SUBQ PRN ×3 (05:57→16:39)
[2022-05-16 06:14] LABS: MAGNESIUM 2.3 mg/dL (1.8-2.4); PHOSPHORUS 3.3 mg/dL (2.5-4.9)
--- NOTE | 2022-05-16 07:30 | NUR ---
Received pt awake and alert, able to nod to questions. ETT to vent settings SIMV TV 450 rate 14 PEEP 5 FiO2@28%. Sinus rhythm on monitor. OG-tube intact and infusing Nepro @40ml/hr with FWF 100ml Q8h. Wells catheter intact and draining to BSD. Central line on right IJ intact and patent infusing Precedex @ 0.3mcg/kg/hr and NS@TKO. AV fistula on left upper arm with positive bruit and thrill. Bilat soft wrist restraints in place with no signs of injury. Safety precautions in place.
--- NOTE | 2022-05-16 07:50 | NUR ---
RECEIVED ON A [employer] R860 VENTILATOR PLUGGED INTO RED OUTLET TOLERATING WITHOUT ADVERSE REACTIONS NOTED TO AN ENDOTRACHEAL TUBE #7.5 SECURED AT 24cm TEETH/GUM LINE WITH AN ANCHOR FAST CUFF PRESSURE CHECKED NOTEDLOC AWAKE AND ALERT STABLE EQUAL CHEST RISE GOOD AERATION THROUGHOUT BILATERAL LUNG BLISS AIRWAY PATENT
--- NOTE | 2022-05-16 07:55 | NUR ---
STABLE EQUAL CHEST RISE AIRWAY PATENT PLACED ON CPAP TRIAL NOTED
[2022-05-16 08:52] LABS: BASOPHILS # (AUTO) 0.1 K/uL (0.00-0.22); EOSINOPHILS # (AUTO) 0.5 K/uL (0-0.4); EOSINOPHILS % (AUTO) 4.7 % (0.0-4.0); HEMATOCRIT 31.3 % (36-52); HEMOGLOBIN 10.1 g/dL (12.0-18.0); LYMPHOCYTES # (AUTO) 1.5 K/uL (2.0-11.5); LYMPHOCYTES % (AUTO) 15.6 % (20.5-51.1); MEAN CORPUSCULAR HEMOGLOBIN 27 pg (27-31); MEAN CORPUSCULAR HGB CONC 32 g/dL (33-37); MEAN CORPUSCULAR VOLUME 84.5 fL (80-94); MONOCYTES # (AUTO) 0.6 K/uL (0.8-1.0); MONOCYTES % (AUTO) 6.1 % (1.7-9.3); NEUTROPHILS # (AUTO) 7.1 K/uL (1.8-7.7); NEUTROPHILS % (AUTO) 72.6 % (42.2-75.2); PLATELET COUNT (AUTO) 205 K/uL (140-450); RED BLOOD CELL COUNT(AUTO) 3.71 MIL/uL (4.20-6.10); RED CELL DISTRIBUTION WIDTH 18.5 % (11.6-13.7); WHITE BLOOD COUNT (AUTO) 9.8 K/uL (4.8-10.8)
--- NOTE | 2022-05-16 09:03 | NUR ---
TOLERATING CPAP TRIAL WITHOUT SOB NOTED GOOD CHEST RISE AIRWAY PATENT; HEMODIALYSIS IN PROGRESS
[2022-05-16] MEDS: EPOETIN ALFA-EPBX 10,000 UNITS/ML VIAL SUBQ SCH (09:06)
[2022-05-16] MEDS: VIT-B COMP/VIT-C/FOLIC ACID 1 TAB PO SCH (09:06)
[2022-05-16] MEDS: INSULIN LANTUS 100 UNITS/ML 10 ML VIAL SUBQ SCH (09:07)
--- NOTE | 2022-05-16 09:07 | NUR ---
CPAP TRIAL; ABG DONE AFTER 1 HOUR; NO ADVERSE REACTIONS OR TRAUMA AT PUNCTURE SITE
--- NOTE | 2022-05-16 09:15 | NUR ---
Hemodialysis done at bedside.
--- NOTE | 2022-05-16 09:17 | NUR ---
CALLED DR. SHADY PARIS AT [facility] [phone]; DR. BIANCA PARTIDA DISTRICT COURT JUDGE; SHRUTHI/EXCHANGE TO PAGE DR. PARTIDA; PATIENT INFORMATION AND CALL BACK NUMBER [id number]
--- NOTE | 2022-05-16 09:20 | NUR ---
CALL BACK FROM DR. BIANCA PARTIDA; REVIEWED LOC; CPAP VENTILATOR SETTINGS; CPAP TRIAL RESULTS X 1 HOUR; WEANING PARAMETERS; DIAGNOSTIC READINGS; PULMONARY STATUS TORBO DR. BIANCA PARTIDA: EXTUBATE PATIENT
--- NOTE | 2022-05-16 09:35 | NUR ---
HEMODIALYSIS IN PROGRESS; STABLE IN CPAP TRIAL
--- NOTE | 2022-05-16 09:48 | NUR ---
BED HUDDLE; HOLD ON EXTUBATION; MONTEZ/RADIOLOGY CLERK TO CONVERSE WITH PRIMARY AND PULMONARY PHYSICIAN
--- NOTE | 2022-05-16 10:30 | NUR ---
Seen and examined by Dr. Damon.
--- NOTE | 2022-05-16 10:35 | NUR ---
REVIEWED CURRENT EXTUBATION ORDER: RT TO HOLD OFF ON EXTUBATION UNTIL FURTHER ORDER
--- NOTE | 2022-05-16 10:58 | NUR ---
PLACED BACK ON SIMV WITH MECHANICAL RATE NOTED TO REST PATIENT; DECREASED RATE TO 12 BPM TO INCREASE SpVt AND RATE; HEMODIALYSIS IN PROGRESS
[2022-05-16] MEDS: GAUZE TP SCH (12:24)
[2022-05-16] MEDS: THERAHONEY GEL 42.5 GM TP SCH (12:25)
--- NOTE | 2022-05-16 12:51 | NUR ---
Hemodialysis done. 3 L removed out. Pt tolerated well. No bleeding on left AV shunt.
--- NOTE | 2022-05-16 13:12 | NUR ---
STABLE GOOD CHEST RISE ENDOTRACHEAL SUCTION FOR LARGE THIN YELLOW SECRETIONS AIRWAY PATENT
--- NOTE | 2022-05-16 13:13 | NUR ---
HEMODIALYSIS COMPLETED; 3 LITERS REMOVED
--- NOTE | 2022-05-16 13:18 | NUR ---
ON OR ABOUT THIS TIME MELCHOR PARIS EXTUBATE PATIENT AFTER 1530; CONSENSUS BETWEEN FOREMENTIONED MD AND FINISHER CARD TENDER EXTUBATION AT OR ABOUT 1540
--- NOTE | 2022-05-16 13:20 | NUR ---
Dr. Staton at bedside examining pt. New order received.
--- NOTE | 2022-05-16 13:38 | NUR ---
PLACED BACK ON CPAP TRIAL NOTED; DECREASED PRESSURE SUPPORT TO 6cmH2O; SpVt GREATER THAN 8ml/kg STRENGTHEN PULMONARY CORE IMPROVE RESPIRATORY RESERVES; SIDNEY/CASING WORKER NOTIFIED
--- NOTE | 2022-05-16 15:50 | NUR ---
RT extubated pt and placed on cool aerosol mask with O2 @6L/min, 28%. Pt tolerated well. O2 sat 99%. and son at bedside visiting pt. All questions answered.
--- NOTE | 2022-05-16 15:52 | NUR ---
STABLE EQUAL CHEST RISE ENDOTRACHEAL SUCTION FOR MODERATE THIN YELLOW SECRETIONS AIRWAY PATENT; PREP PATIENT FOR EXTUBATION
--- NOTE | 2022-05-16 15:55 | NUR ---
EXTUBATED PATIENT WITH NO ADVERSE REACTIONS NOTED; POST EXTUBATION PLACED ON A COOL AEROSOL TO MASK AT 28%/6 LPM SATURATION 100%
--- NOTE | 2022-05-16 16:10 | NUR ---
REQUESTED JAYCEE/SERVICE COUNTER CASHIER TO PLACE A COURTESY TEXT TO DR. SHADY PARIS TO INFORM MD ON SUCCESSFUL EXTUBATION; CONFIRMED BY [employer]
[2022-05-16] MEDS ORDERED: ALBUTEROL SULFATE/IPRATROPIU 3 ML SOL IH PRN (16:20)
[2022-05-16] MEDS ORDERED: hydrALAZINE 20 MG/ML VIAL IVP PRN (17:10)
--- NOTE | 2022-05-16 18:40 | NUR ---
Speech therapist at bedside performing swallow eval.
--- NOTE | 2022-05-16 19:17 | NUR ---
Endorsed to packing inspector nurse Randa for continuity of care.
--- NOTE | 2022-05-16 20:00 | NUR ---
OPENING NOTE PT IN BED WITH AOX2 ABLE TO [facility]AY [facility] AND HIS NAME. LIBYAN NURSE INTERPRET. PT IS ON MONITOR AND BP IS ELEVATED , MD IS AWARE AND HYDRALAZINE ORDER FOR SBP OVER 180. PT HAS RIGHT IJ WITH TKO NS INFUSING WITH NO COMPLICATIONS. PT HAS RIGHT UPPER ARM AV FISTULA PATENT AND DRESSING IN PLACE. PT HAS F/ DRAINAGE TO GRAVITY WITH SMALL AMOUNT OF DARK NUPUR COLOR URINE. WILL CONTINUE TO MONITOR FOR SAFETY.
[2022-05-16] MEDS: HYDROmorphone 1 MG/ML AMP IVP PRN (20:17)
[2022-05-17] VITALS (11 sets, daily range): BP systolic 157–192; BP diastolic 60–83
--- NOTE | 2022-05-17 | NUR ---
NOTE PT IS RESTLESS HAS BEGAN TO PULL AT THE IJ HAS BEEN REDIRECTED AND ATTEMPTING TO HLPE PT RELAX AND SLEEP PT MORE CONFUSED AND KEEPS ASKING WHERE THE DOG WENT
[2022-05-17] MEDS: Z-GUARD PASTE TP SCH ×2 (01:00→13:00)
[2022-05-17] MEDS: HYDRAGUARD CREAM TP SCH ×2 (01:00→13:00)
--- NOTE | 2022-05-17 02:20 | NUR ---
PAGED PT STILL NOT ASLEEP AND BECOMING MORE RESTLESS AND SLIGHTLY AGITATED.
--- NOTE | 2022-05-17 04:00 | NUR ---
CHANGED IN CONDITION PT MORE RESTLESS AND AGITATED PT ATTMEPTING TO PULLOUT THE IJ. MD TO BE NOTIFIED TO REQUEST RESTRAINS FOR PT OWN'S SAFETY
--- NOTE | 2022-05-17 04:00 | NUR ---
BM PT HAS MODERSTE SIZE HARD FORMED STOOL. WILL PASS ON TO DAYSHIFT TO REQUEST STO9OL SOFTENER
[2022-05-17] MEDS ORDERED: RACEPINEPHRINE 2.25% 13.5 MG/0.5 ML NEBU INH ONE (04:55)
[2022-05-17] MEDS ORDERED: RACEPINEPHRINE 2.25% 13.5 MG/0.5 ML NEBU INH PRN (05:05)
--- NOTE | 2022-05-17 05:09 | NUR ---
HEARD STRIDOR ON THE NECK DURING AUSCULTATION. RAC. EPI WAS OVERRIDE AND GIVEN TO PT. PT TOLERATED WELL. NO STRIDOR AFTER TX. WILL CONTINUE TO MONITOR PT.
[2022-05-17] MEDS: PIPERACILLIN/TAZOBACTAM 2.25 GM in DEXTROSE 5% 50 ML IV SCH ×3 (05:32→20:35)
[2022-05-17 06:22] LABS: MAGNESIUM 2.3 mg/dL (1.8-2.4); PHOSPHORUS 3.8 mg/dL (2.5-4.9)
--- NOTE | 2022-05-17 06:30 | NUR ---
CALLED PT IN RESTRAINT BILAT WRIST
[2022-05-17 06:31] LABS: ANION GAP 15.8 (8-16); CARBON DIOXIDE 27.5 mmol/L (21-32); CHLORIDE 97 mmol/L (98-107); GLUCOSE 179 mg/dL (74-106); POTASSIUM 4.3 mmol/L (3.5-5.1); SODIUM SERUM 136 mmol/L (136-145); UREA NITROGEN, BLOOD 38 mg/dL (7-18)
[2022-05-17 06:46] LABS: CREATININE 6.1 mg/dL (0.6-1.3)
--- NOTE | 2022-05-17 06:46 | NUR ---
CRIAL LAB CREAT 6.1 FROM REYNA IN LAB. NOTIFIED NO NEW CURRENT ORDERS
[2022-05-17 07:25] LABS: BASOPHILS # (AUTO) 0.2 K/uL (0.00-0.22); BASOPHILS % (AUTO) 1.6 % (0.0-2.0); EOSINOPHILS # (AUTO) 0.3 K/uL (0-0.4); EOSINOPHILS % (AUTO) 3.1 % (0.0-4.0); HEMATOCRIT 31.1 % (36-52); LYMPHOCYTES # (AUTO) 2.7 K/uL (2.0-11.5); MEAN CORPUSCULAR HEMOGLOBIN 28 pg (27-31); MEAN CORPUSCULAR HGB CONC 32 g/dL (33-37); MEAN CORPUSCULAR VOLUME 85.5 fL (80-94); MONOCYTES # (AUTO) 0.8 K/uL (0.8-1.0); MONOCYTES % (AUTO) 7.8 % (1.7-9.3); NEUTROPHILS # (AUTO) 6.8 K/uL (1.8-7.7); NEUTROPHILS % (AUTO) 62.5 % (42.2-75.2); PLATELET COUNT (AUTO) 186 K/uL (140-450); RED BLOOD CELL COUNT(AUTO) 3.64 MIL/uL (4.20-6.10); RED CELL DISTRIBUTION WIDTH 18.5 % (11.6-13.7); WHITE BLOOD COUNT (AUTO) 10.9 K/uL (4.8-10.8)
--- NOTE | 2022-05-17 08:00 | NUR ---
RECEIVED PT ON BED - AAOX2, DENIES PAIN/DISCOMFORT AT THIS TIME, NOT IN DISTRESS. ASSESSMENT DONE. PT IS CALM, COOPERATIVE WITH CARE, REORIENTATION PROVIDED. WENDY SOFT WRIST RESTRAINTS IN PLACE, RELEASED/DISCONTINUED. ASSISTED IN REPOSITIONING TO SIDE, SUPPORTED WITH PILLOWS. FED WITH BREAKFAST, APPETITE GOOD, CONSUMED 100%. ASPIRATION PRECAUTION OBSERVED. NEEDS ATTENDED. CALL LIGHT WITHIN REACH. BP SLIGHTLY ELEVATED. CONT TO MONITOR.
[2022-05-17] MEDS: BLOOD GLUCOSE MONITORING 1 DEV DEV FS SCH ×4 (08:28→20:35)
[2022-05-17] MEDS: INSULIN LANTUS 100 UNITS/ML 10 ML VIAL SUBQ SCH (08:32)
[2022-05-17] MEDS: hydrALAZINE 20 MG/ML VIAL IVP SCH ×3 (08:33→18:44)
[2022-05-17] MEDS: EPOETIN ALFA-EPBX 10,000 UNITS/ML VIAL SUBQ SCH (08:37)
[2022-05-17] MEDS: VIT-B COMP/VIT-C/FOLIC ACID 1 TAB PO SCH (08:39)
--- NOTE | 2022-05-17 10:30 | NUR ---
DR. HIGH HERE VISITING PT, UPDATED ON PT CONDITION, MADE AWARE OF ELEVATED BP.
[2022-05-17] MEDS: INSULIN LISPRO SLIDING SCALE 100 UNITS/ML VIAL SUBQ PRN ×2 (11:39→20:41)
[2022-05-17] MEDS: GAUZE TP SCH (13:00)
[2022-05-17] MEDS: THERAHONEY GEL 42.5 GM TP SCH (13:00)
[2022-05-17] MEDS: CLONIDINE HYDROCHLORIDE 0.1 MG TAB PO SCH ×2 (13:30→20:34)
--- NOTE | 2022-05-17 14:00 | NUR ---
HD NURSE AT BEDSIDE PREPARING FOR HD. PT'S SON AT BEDSIDE, UPDATED ON PT CONDITION.
--- NOTE | 2022-05-17 15:45 | NUR ---
hd COMPLETED, 3L REMOVED, PT TOLERATED PROCEDURE WELL. PM CARE RENDERED. GOOD PERICARE DONE FOR STOOL INCONTINENCE - MEDIUM SIZE BROWNISH SOFT FORMED STOOL. Z-GUARD APPLIED ORDERED. KEPT CLEAN AND DRY
--- NOTE | 2022-05-17 16:02 | NUR ---
05/17/22 RD FOLLOW UP COMPLETED PLEASE REFER TO NUTRITION ASSESSMENT UNDER CARE ACTIVITY FOR ESTIMATED NUTRITIONAL NEEDS. 1. CONTINUE RENAL MECHANICAL SOFT DIET, NECTAR THICK LIQUIDS TOLERATED 2. RECOMMEND GREGORY BID AND NEPRO 1 X DAY FOR WOUND HEALING 3. MONITOR PO INTAKE AND NUTRITION RELATED LAB VALUES. 4. RD TO FOLLOW-UP 3-5 DAYS, MODERATE RISK REVIEWED BY SHAHBAZ COLLINS RD
--- NOTE | 2022-05-17 18:29 | NUR ---
PT ARRIVED TO [facility] UNIT VIA GURNEY. PT AOX1. RESPIRATIONS EVEN AND UNLABORED ON 3L O2 VIA N/C. TRAN IN PLACE... LITTLE URINE IN BAG 5CC. ICU NURSE ENDORSED PT ANURIC. DIALYSIS ACCESS ON L FOREAREM IV FISTULA. PT WITH CENTRAL LINE 3 LUMEN AND RIGHT IJ. PT VS UPON ARRIVAL TO UNIT: TEMP: 98.5, PULSE 68, BP 187/77, RR 18, O2 SATURATING AT 100%.
--- NOTE | 2022-05-17 18:30 | NUR ---
PT TRANSFERRED TO [facility] VIA HOSPITAL BED. GENERAL CONDITION STABLE FOR TRANSPORT. REPORT GIVEN TO CALISTA, RECEIVING NURSE.
--- NOTE | 2022-05-17 19:24 | NUR ---
ENDORSED PT TO REGISTERED DENTAL HYGIENIST NURSE YONATHAN FOR CONTINUITY OF CARE. PT IN STABLE CONDITION.
--- NOTE | 2022-05-17 19:25 | NUR ---
RECEIVED REPORT FROM DAY SHIFT KENROY ROMAN FOR CONTINUITY OF CARE. PT IS AAX1. PT IS CONFUSED. PT IS ON 3L NC SATING 98%. PT HAS FC ON DRAINING CLEAR YELLOW URINE. PT HAS RIJ TRIPLE LUMEN SALINE LOCK. PT HAS LEFT AV SHUNT. PT HAS SEVERAL WOUNDS ON COCCYX, BILATERAL HEELS, LEFT HAND AND LEFT LEG. BED ALARM ON. SAFETY PRECAUTIONS TAKEN. WILL CONTINUE TO MONITOR THE PT.
[2022-05-17] MEDS: LOSARTAN 50 MG TAB PO SCH (22:01)
--- NOTE | 2022-05-17 22:03 | NUR ---
SCHEDULE MEDICATION GIVEN. NO ADVERSE REACTION NOTED. WILL CONTINUE TO MONITOR THE PT.
--- NOTE | 2022-05-17 23:47 | NUR ---
VITAL SIGNS TAKEN AND STABLE. PT KEEPS TRYING TO GET OUT OF BED AND WANTS TO GO HOME. PT STATES HIS FAMILY IS HERE TO PICK HIM UP. REORIENTATED PT THAT FAMILY IS NOT HERE AND ITS ABOUT TO BE MIDNIGHT. HE STILL NEEDS TO SEE THE DOCTOR IN THE MORNING. WILL CONTINUE TO MONITOR THE PT.
[2022-05-18] VITALS: BP 131/60
[2022-05-18] MEDS: HYDRAGUARD CREAM TP SCH ×2 (01:05→14:06)
[2022-05-18] MEDS ORDERED: LORazepam 2 MG/ML VIAL IVP PRN (01:05)
[2022-05-18] MEDS: Z-GUARD PASTE TP SCH ×2 (01:05→14:06)
--- NOTE | 2022-05-18 01:29 | NUR ---
MESSAGED LAMINATING MACHINE OFFBEARER DR. ALBERTO THAT PT KEEP TRYING TO GET OUT OF BED AND TRYING TO GO HOME. REORIENTATED PT HE IS IN THE HOSPITAL AND HE NEEDS TO BE DISCHARGE FIRST. PT KEEPS [place] TO PICK HIM UP. PT STATES HIS FAMILY IS HERE FOR HIM AND TO HELP HIM GET OFF THE BED. PT IS CONFUSED. PT KEEPS PULLING ON THE SIDE RAILS TO GET OUT OF BED. TRIED TO REPOSITION PT BUT STARTED KICKING. DR ORDER ATIVAN 1MG IVP Q4H. ATIVAN GIVEN. WILL CONTINUE TO MONITOR THE PT.
[2022-05-18 04:00] VITALS: BP 138/68
[2022-05-18] MEDS: PIPERACILLIN/TAZOBACTAM 2.25 GM in DEXTROSE 5% 50 ML IV SCH ×2 (04:00→14:53)
--- NOTE | 2022-05-18 04:03 | NUR ---
SCHEDULE MEDICATION GIVEN. NO ADVERSE REACTION NOTED. WILL CONTINUE TO MONITOR THE PT.
[2022-05-18] MEDS: CLONIDINE HYDROCHLORIDE 0.1 MG TAB PO SCH ×2 (05:10→13:00)
--- NOTE | 2022-05-18 07:19 | NUR ---
ENDORSED PT TO DAY SHIFT JENNIFER SALAZAR FOR CONTINUITY OF CARE. PT IS STABLE.
[2022-05-18 08:00] VITALS: BP 145/67
[2022-05-18] MEDS: BLOOD GLUCOSE MONITORING 1 DEV DEV FS SCH ×3 (08:19→16:18)
[2022-05-18] MEDS: INSULIN LANTUS 100 UNITS/ML 10 ML VIAL SUBQ SCH (09:00)
[2022-05-18] MEDS ORDERED: OLANZapine 5 MG ODT SL SCH (10:00)
[2022-05-18] MEDS: hydrALAZINE 20 MG/ML VIAL IVP SCH ×3 (10:13→17:55)
--- NOTE | 2022-05-18 13:36 | NUR ---
DC PLANNING: FAXED ALL PAPER WORK TO [facility], CALLED AND SPOKE WITH GET STATED PATIENT CAN GO TO ROOM 23A # TO GIVE REPORT [phone] ARRANGED TRANSPORT WITH IE ETA 1600 NOTIFIED CAM CHARGE NURSE. CM TO FOLLOW
[2022-05-18] MEDS: LOSARTAN 50 MG TAB PO SCH (13:47)
[2022-05-18] MEDS: VIT-B COMP/VIT-C/FOLIC ACID 1 TAB PO SCH (13:47)
[2022-05-18] MEDS: THERAHONEY GEL 42.5 GM TP SCH (14:05)
[2022-05-18] MEDS: GAUZE TP SCH (14:05)
[2022-05-18 15:56] VITALS: BP 124/67
[2022-05-18 17:55] VITALS: BP 182/75
--- NOTE | 2022-05-18 18:00 | NUR ---
I CALLED [facility] AND [facility] [employer] THEY SAID NO ARRANGEMENT MADE, SPOKE TO DIONNE AND SHE SAID TO CALL [facility], I CALLED [facility] AND GAVE ME ETA IN 15 MIN. RN NOTIFIED.
== END 2022-05-18 19:19 | DRG 870 ==
LOC: MED 13:15 → MTU 16:12 → MIC 17:35 → MTU 05-17 18:30
PROVIDERS: ADMIT Hospitalist; ATTEND Student in an Organized Health Care Education/Training Program
PROC: 5A1955Z Respiratory Ventilation, Greater than 96 Consecutive Hours (ICD-10-PCS; principal; 2022-05-12)
PROC: 0BH17EZ Insertion of Endotracheal Airway into Trachea, Via Natural or Artificial Opening (ICD-10-PCS; 2022-05-12)
PROC: 02HV33Z Insertion of Infusion Device into Superior Vena Cava, Percutaneous Approach (ICD-10-PCS; 2022-05-12)
PROC: B548ZZA Ultrasonography of Superior Vena Cava, Guidance (ICD-10-PCS; 2022-05-12)
PROC: 5A1D70Z Performance of Urinary Filtration, Intermittent, Less than 6 Hours Per Day (ICD-10-PCS; 2022-05-14)
PROC: 0BP1XDZ Removal of Intraluminal Device from Trachea, External Approach (ICD-10-PCS; 2022-05-16)
PROC: 5A1D70Z Performance of Urinary Filtration, Intermittent, Less than 6 Hours Per Day (ICD-10-PCS; 2022-05-16)
PROC: 5A1D70Z Performance of Urinary Filtration, Intermittent, Less than 6 Hours Per Day (ICD-10-PCS; 2022-05-17)
DX: A41.9 Sepsis, unspecified organism (principal); J69.0 Pneumonitis due to inhalation of food and vomit; R65.21 Severe sepsis with septic shock; N18.6 End stage renal disease; J96.01 Acute respiratory failure with hypoxia; G93.41 Metabolic encephalopathy; I12.0 Hypertensive chronic kidney disease with stage 5 chronic kidney disease or end stage renal disease; E87.5 Hyperkalemia; Z20.822 Contact with and (suspected) exposure to COVID-19; D64.9 Anemia, unspecified; E78.00 Pure hypercholesterolemia, unspecified; E78.5 Hyperlipidemia, unspecified; E11.319 Type 2 diabetes mellitus with unspecified diabetic retinopathy without macular edema; F03.90 Unspecified dementia, unspecified severity, without behavioral disturbance, psychotic disturbance, mood disturbance, and anxiety; E03.9 Hypothyroidism, unspecified; E11.22 Type 2 diabetes mellitus with diabetic chronic kidney disease; Z99.2 Dependence on renal dialysis; Z82.49 Family history of ischemic heart disease and other diseases of the circulatory system; Z87.442 Personal history of urinary calculi; Z83.3 Family history of diabetes mellitus; Z82.3 Family history of stroke; Z79.4 Long term (current) use of insulin
CPT/HCPCS: 31500; 36415; 36556; 36600; 70450; 71045; 71250; 80048; 80053; 80202; 81001; 82803; 82948; 83605; 83735; 83880; 84100; 84484; 85025; 86704; 86706; 86708; 86709; 86803; 87040; 87070; 87081; 87205; 87340; 92526; 94002; 94003; 94640; 96365; 99291; J0330; J0360; J0696; J1170; J1815; J2060; J2250; J2543; J2704; J3370; J3490; J7030; J7060; Q5106